=== PATIENT | male | born 1985 | race Hispanic/Latino ===

== ENCOUNTER → 2016-12-22 | Outpatient (CLI) | payer OTHER ==
--- NOTE | 2016-12-22 12:45 | REP ---
Right ankle four views : There is no fracture or dislocation. Mineralization and joint spaces are normal. There are no calcifications or foreign bodies. Impression: Negative ankle . There is no change from 12/31/2015. Signed by Sebas Dennis MD 12/22/2016 12:37 P
== END ==
LOC: M RAD 11:55
PROVIDERS: ATTEND Surgery
DX: S99.911A Unspecified injury of right ankle, initial encounter (principal); X50.1XXA Overexertion from prolonged static or awkward postures, initial encounter; Y92.9 Unspecified place or not applicable